=== PATIENT | male | born 1970 | race Two or more races ===

== ENCOUNTER 2024-04-21 10:53 | Inpatient (IN) | payer OTHER ==
[~2024-04-21] VITALS: Ht 167.6 cm; Wt 113.4 kg
[2024-04-21] MEDS ORDERED: HYDROCODONE/APAP 5/325MG TABLET ONE (11:22)
[2024-04-21] MEDS ORDERED: IBUPROFEN 600 MG TABLET ONE (11:22)
[2024-04-21] MEDS: HYDROCODONE/APAP 5/325MG TABLET PO ONE (11:26)
[2024-04-21] MEDS ORDERED: IBUPROFEN 200 MG TABLET ONE (11:26)
[2024-04-21] MEDS: IBUPROFEN 400 MG TABLET PO ONE (11:27)
[2024-04-21] MEDS ORDERED: HYDR-3980 PO (12:08)
[2024-04-21] MEDS ORDERED: ONDANSETRON HCL/PF 4 MG/2 ML VIAL ONE (12:37)
[2024-04-21] MEDS ORDERED: MORPHINE SULFATE INJ 4 MG/ML DISP.SYRIN ONE (12:38)
[2024-04-21] MEDS: MORPHINE SULFATE INJ 2 MG/ML DISP.SYRIN IV ONE (12:43)
[2024-04-21] MEDS: ONDANSETRON HCL/PF 4 MG/2 ML VIAL IVP ONE (12:43)
[2024-04-21 12:54] LABS: BASOPHILS % (AUTO) 0.3 % (0.0-2.0); EOSINOPHILS % (AUTO) 0.2 % (0.0-6.0); HEMATOCRIT 45 % (39-51); HEMOGLOBIN 15.2 g/dL (13.5-17.5); LYMPHOCYTES # (AUTO) 1.6 K/uL (0.8-4.8); LYMPHOCYTES % (AUTO) 13.2 % (20.0-44.0); MEAN CORPUSCULAR HEMOGLOBIN 32 PG (26.0-33.0); MEAN CORPUSCULAR HGB CONC 34 g/dl (31.0-36.0); MEAN CORPUSCULAR VOLUME 95 fL (80-96); MONOCYTES # (AUTO) 0.7 K/uL (0.1-1.30); MONOCYTES % (AUTO) 5.9 % (2.0-12.0); NEUTROPHILS # (AUTO) 9.7 K/uL (1.8-8.9); NEUTROPHILS % (AUTO) 80.4 % (43.0-81.0); PLATELET COUNT (AUTO) 256 K/uL (150-450); RED BLOOD CELL COUNT(AUTO) 4.72 MIL/uL (4.5-6.0); RED CELL DISTRIBUTION WIDTH 13.3 % (11.5-15.0); WHITE BLOOD COUNT (AUTO) 12.1 K/uL (4.3-11.0)
[2024-04-21 12:59] LABS: CALCIUM, SERUM 9.2 mg/dL (8.5-10.1); CREATININE 1.1 mg/dL (0.6-1.3); POTASSIUM 3.7 mmol/L (3.5-5.1)
[2024-04-21 13:06] LABS: INR 1.08 (0.91-1.10); PARTIAL THROMBOPLASTIN TIME 23.5 SEC (24.3-34.3); PROTHROMBIN TIME 11.4 SECS (9.2-11.1)
[2024-04-21] MEDS ORDERED: CHOL200026 PO (15:17)
[2024-04-21] MEDS ORDERED: AMLO5TAB4 PO (15:17)
[2024-04-21] MEDS ORDERED: MAG HYDROX/AL HYDROX/SIMETH 30 ML UDC PO PRN (16:30)
[2024-04-21] MEDS ORDERED: ACETAMINOPHEN 325 MG TABLET PO PRN (16:30)
[2024-04-21] MEDS ORDERED: MORPHINE SULFATE INJ 2 MG/ML DISP.SYRIN IV PRN (16:30)
[2024-04-21] MEDS ORDERED: ONDANSETRON HCL/PF 4 MG/2 ML VIAL IVP PRN (16:30)
[2024-04-21] MEDS ORDERED: MAGNESIUM HYDROXIDE 30 ML UDC PO PRN (16:30)
[2024-04-21] MEDS ORDERED: Z GUARD REMEDY 4 OZ OINT TP PRN (16:30)
[2024-04-21 18:00] VITALS: BP 142/87; TEMP 98.6; O2SAT 98
[2024-04-21 20:00] VITALS: BP 161/97; TEMP 98.1; O2SAT 97
[2024-04-22 07:25] LABS: BASOPHILS % (AUTO) 0.3 % (0.0-2.0); EOSINOPHILS % (AUTO) 0.5 % (0.0-6.0); HEMATOCRIT 40 % (39-51); HEMOGLOBIN 13.6 g/dL (13.5-17.5); LYMPHOCYTES # (AUTO) 1.8 K/uL (0.8-4.8); LYMPHOCYTES % (AUTO) 26.1 % (20.0-44.0); MEAN CORPUSCULAR HEMOGLOBIN 32 PG (26.0-33.0); MEAN CORPUSCULAR HGB CONC 34 g/dl (31.0-36.0); MEAN CORPUSCULAR VOLUME 94 fL (80-96); MONOCYTES # (AUTO) 0.6 K/uL (0.1-1.30); MONOCYTES % (AUTO) 9.1 % (2.0-12.0); NEUTROPHILS # (AUTO) 4.4 K/uL (1.8-8.9); PLATELET COUNT (AUTO) 239 K/uL (150-450); RED BLOOD CELL COUNT(AUTO) 4.29 MIL/uL (4.5-6.0); RED CELL DISTRIBUTION WIDTH 13.5 % (11.5-15.0); WHITE BLOOD COUNT (AUTO) 6.8 K/uL (4.3-11.0)
[2024-04-22 08:00] VITALS: BP_SYST 146; BP_SYST 157; BP_DIAS 96; BP_DIAS 98; TEMP 98.8; O2SAT 96
[2024-04-22 08:00] LABS: CALCIUM, SERUM 8.8 mg/dL (8.5-10.1); MAGNESIUM 2.3 mg/dL (1.8-2.4); PHOSPHORUS 3.4 mg/dL (2.5-4.9)
[2024-04-22] MEDS: AMLODIPINE BESYLATE 5 MG TABLET PO SCH (09:51)
[2024-04-22] MEDS ORDERED: BUPIVACAINE 0.25% 75 MG/30 ML VIAL ONE (11:54)
[2024-04-22] MEDS ORDERED: ANESTHESIA TRAY IN PYXIS 1 EA TRAY MC ONE (11:54)
[2024-04-22] MEDS ORDERED: FENTANYL PF 250MCG/5ML AMPUL ONE (14:17)
[2024-04-22] MEDS ORDERED: VANCOMYCIN 1 GM VIAL ONE (15:45)
[2024-04-22 17:30] VITALS: BP 153/93; TEMP 97.9; O2SAT 96
[2024-04-22] MEDS ORDERED: oxyCODONE/APAP (5/325 MG) 1 UDTAB TABLET PO PRN ×2 (17:30)
[2024-04-22] MEDS: CLONIDINE HCL 0.1 MG TABLET PO PRN (19:59)
[2024-04-22 20:00] VITALS: BP 157/103; TEMP 98.1; O2SAT 96
[2024-04-22] MEDS: Z GUARD REMEDY 4 OZ OINT TP SCH (20:40)
[2024-04-22] MEDS: CEFAZOLIN 2 GM in IV D5W 100 ML IV SCH (21:33)
[2024-04-23] MEDS: oxyCODONE/APAP (5/325 MG) 1 UDTAB TABLET PO PRN ×2 (05:24→12:46)
[2024-04-23 06:13] LABS: BASOPHILS % (AUTO) 0.3 % (0.0-2.0); EOSINOPHILS % (AUTO) 0.4 % (0.0-6.0); HEMATOCRIT 36 % (39-51); HEMOGLOBIN 12.1 g/dL (13.5-17.5); LYMPHOCYTES % (AUTO) 26.6 % (20.0-44.0); MEAN CORPUSCULAR HEMOGLOBIN 32 PG (26.0-33.0); MEAN CORPUSCULAR HGB CONC 34 g/dl (31.0-36.0); MEAN CORPUSCULAR VOLUME 94 fL (80-96); MONOCYTES # (AUTO) 0.8 K/uL (0.1-1.30); MONOCYTES % (AUTO) 10.3 % (2.0-12.0); NEUTROPHILS # (AUTO) 4.6 K/uL (1.8-8.9); NEUTROPHILS % (AUTO) 62.4 % (43.0-81.0); PLATELET COUNT (AUTO) 220 K/uL (150-450); RED BLOOD CELL COUNT(AUTO) 3.81 MIL/uL (4.5-6.0); RED CELL DISTRIBUTION WIDTH 13.6 % (11.5-15.0); WHITE BLOOD COUNT (AUTO) 7.4 K/uL (4.3-11.0)
[2024-04-23 06:40] LABS: CALCIUM, SERUM 8.4 mg/dL (8.5-10.1); CREATININE 1.1 mg/dL (0.6-1.3); POTASSIUM 3.8 mmol/L (3.5-5.1)
[2024-04-23] MEDS: VALSARTAN 80 MG TABLET PO SCH (08:51)
[2024-04-23 20:00] VITALS: BP 143/90; TEMP 98; O2SAT 99
[2024-04-24 08:46] VITALS: BP 154/91
[2024-04-24] MEDS ORDERED: IBUP-1957 PO (10:13)
[2024-04-24] MEDS: ISOSORBIDE DINITRATE (20MG) 20 MG TABLET PO SCH (10:25)
[2024-04-24 10:26] VITALS: BP 147/90
[2024-04-24] MEDS: hydrALAZINE HCL 50 MG TABLET PO SCH (10:26)
[2024-04-25] MEDS ORDERED: AMLODIPINE BESYLATE 5 MG TABLET PO SCH (09:00)
== END 2024-04-24 12:25 | disposition home or self-care (01) | DRG 315 ==
LOC: ER 11:00 → MED 16:22
PROVIDERS: ADMIT Internal Medicine; ATTEND Internal Medicine
PROC: 0PSG06Z Reposition Left Humeral Shaft with Intramedullary Internal Fixation Device, Open Approach (ICD-10-PCS; principal; 2024-04-22)
DX: S42.332A Displaced oblique fracture of shaft of humerus, left arm, initial encounter for closed fracture (principal); I42.9 Cardiomyopathy, unspecified; J90 Pleural effusion, not elsewhere classified; I10 Essential (primary) hypertension; W11.XXXA Fall on and from ladder, initial encounter; Y92.9 Unspecified place or not applicable; Z79.899 Other long term (current) drug therapy
CPT/HCPCS: 36415; 71045-TC; 73060-TC; 80048-TC; 83735-TC; 84100-TC; 85025-TC; 85730-TC; 86850-TC; 93307-TC; A4223; C1713; G0378; J0330; J0690; J2270; J2405; J2704; J3010; J3370; J3490; J7050; J7060